=== PATIENT | male | born 1995 | race Caucasian/White ===

== ENCOUNTER 2016-10-25 09:56 | Emergency (ER) | payer OTHER ==
[~2016-10-25] VITALS: Ht 162.6 cm; Wt 56.6 kg
[2016-10-25 10:01] VITALS: Ht 162.6 cm; Wt 56.6 kg
--- NOTE | 2016-10-25 11:36 | ERD ---
ER Documentation Chief Complaint Date/Time DATE: 10/25/16 TIME: 11:34 Chief Complaint cough x 3 weeks HPI This is a 20-year-old male who presents to the emergency department today complaining of cough for the past 3 weeks. Patient states he got sick then got better and now is worse again. Patient states he has some right-sided chest pain and has some "trouble breathing". States he has also had some nasal congestion. Denies any fevers or chills. States his cough is worse at night and when it is cold out. ROS All systems reviewed and are negative except as per history of present illness. Medications Home Meds Active Scripts Guaifenesin-Dextromethorphan* (Robitussin* DM) 100MG/10MG/5ML Syrup, 10 ML PO Q6H Y for COUGH for 5 Days, ML Prov:FATMATA POWELL PA-C 10/25/16 Cetirizine Hcl* (Zyrtec*) 10 Mg Capsule, 10 MG PO DAILY, #14 TAB.CHEW Prov:FATMATA POWELL PA-C 10/25/16 Fluticasone Propionate (Flonase Allergy Relief) 9.9 Ml [place].susp, 2 SPRAY NASAL DAILY, #1 BOTTLE TO EACH NOSTRIL Prov:FATMATA POWELL PA-C 10/25/16 Azithromycin* (Zithromax*) 250 Mg Tablet, 250 MG PO .ZPACK DIRECTED, #6 TAB TAKE 500 MG (2 TABS) THE FIRST DAY THEN 250 MG (1 TAB) DAYS 2-5 Prov:FATMATA POWELL PA-C 10/25/16 Physical Exam Vitals Vital Signs Date Time Temp Pulse Resp B/P Pulse Ox O2 Delivery O2 Flow Rate FiO2 10/25/16 10:01 98.1 80 18 108/56 99 Physical Exam Const: Thin, no acute distress Head: Atraumatic Eyes: Normal Conjunctiva ENT: Ears TMs normal. Nose no drainage. Throat no erythema no exudate.. Neck: Full range of motion..~ No meningismus. Resp: Clear to auscultation bilaterally no absent breath sounds. No wheezing. Cardio: Regular rate and rhythm, no murmurs Abd: Soft, non tender, non distended. Normal bowel sounds Skin: No petechiae or rashes Neur: Awake and alert Psych: Normal Mood and Affect Results 24 hrs [place] [id number] Radiology Main Line: [phone] DIAGNOSTIC IMAGING REPORT Patient: ADOLFO PENNINGTON : 1995 Age: 20 Sex: M MR #: [id number] DOS: 10/25/16 0000 Ordering MD: FATMATA POWELL PA-C Location: [facility] Room/Bed: PROCEDURE: Chest Radiograph. CLINICAL INDICATION: Cough. Shortness of breath. TECHNIQUE: Single frontal chest radiograph. COMPARISON: None available FINDINGS: The patient is rotated. Heart size is poorly evaluated but appears within normal limits. Prominence of the right hilum is likely related patient rotation. The lungs are clear. No infiltrate or effusion is seen. The bones are intact. IMPRESSION: 1. No evidence of acute cardiopulmonary disease. RPTAT: KK .Олег Gonzalez MD, MD Date Time Electronically viewed and signed by .Олге Gonzalez MD, MD on 2016 12:48 .B/ CC: FATMATA POWELL PA-C Procedures/MDM This is a 20 -year-old male presents to the emergency department today complaining of cough for the past 3 weeks and "trouble breathing". Patient is thin appearing and given his complaint of right-sided chest pain with some shortness of breath did obtain a chest x-ray to rule out pneumothorax. Chest x-ray shows no evidence of acute cardiopulmonary disease. There is no infiltrate or effusion seen. Low suspicion for pneumonia, PE, abscess, pleural effusion, pneumothorax. Patient symptoms at this time is consistent with URI likely viral versus bronchitis. Patient given a prescription for azithromycin given the duration of his symptoms. He will also be given a prescription for Robitussin and Zyrtec and Flonase. At this time the patient is stable for discharge and outpatient management. Patient should follow up with their PCP in the next 1-2 days. They may return to the emergency department sooner for any persistent or worsening of symptoms. Patient understood and agreed with the plan. Departure Diagnosis: Primary Impression: Cough Condition: Fair FATMATA POWELL PA-C Oct 25, 2016 11:36
--- NOTE | 2016-10-25 12:48 | RADRPT ---
PROCEDURE: Chest Radiograph. CLINICAL INDICATION: Cough. Shortness of breath. TECHNIQUE: Single frontal chest radiograph. COMPARISON: None available FINDINGS: The patient is rotated. Heart size is poorly evaluated but appears within normal limits. Prominenc e of the right hilum is likely related patient rotation. The lungs are clear. No infiltrate or ef fusion is seen. The bones are intact. IMPRESSION: 1. No evidence of acute cardiopulmonary disease. RPTAT: KK .Олег Gonzalez MD, MD Date Time Electronically viewed and signed by .Олег Gonzalez MD, on 10/25/2016 12:48 .B/
[2016-10-25] MEDS ORDERED: FLUT9.9S NASAL (12:55)
[2016-10-25] MEDS ORDERED: AZIT250T94 PO (12:55)
[2016-10-25] MEDS ORDERED: CETI10CA PO (12:56)
[2016-10-25] MEDS ORDERED: UDROBDM PO (12:56)
== END 2016-10-25 13:08 | disposition home or self-care (01) ==
LOC: FTE 09:56
DX: R05 Cough (principal)
CPT/HCPCS: 71010; Z7502